=== PATIENT | female | born 1945 | race Caucasian/White ===

== ENCOUNTER 2023-08-09 23:11 | Inpatient (IN) | payer MEDICARE, OTHER, SELFPAY ==
[2023-08-09] VITALS (8 sets, daily range): BP systolic 89–113; BP diastolic 56–99; BMI 29.7; BMI 29.4
[2023-08-09 17:36] LABS: % Basophils 0.2 % (0-2); % Eosinophils 0.1 % (0-6); % Immature Granulocytes 1.9 % (0-0.5); % Lymphocytes 1.4 % (20.5-51.1); % Monocytes 2.9 % (1.7-9.3); % Neutrophils 93.5 % (42.2-75.2); Absolute Basophils 0.1 10^3/uL (0-0.2); Absolute Immature Granulocytes 0.9 10^3/uL (0-0.05); Absolute Lymphocytes 0.6 10^3/uL (1.2-3.4); Absolute Monocytes 1.3 10^3/uL (0.1-0.6); Absolute Neutrophils 41.4 10^3/uL (1.4-6.5); Hematocrit 40.2 % (37.0-47.0); Hemoglobin 13.6 g/dL (12.0-16.0); Mean Corp Hgb Conc. 33.8 g/dL (33.0-37.0); Mean Corpuscular Hgb 27.7 pg (27.0-31.0); Mean Corpuscular Volume 81.9 fL (81.0-99.0); Mean Platelet Volume 10.2 fL (7.4-10.4); Nucleated Red Blood Cells % 0 %; Platelet Count 360 10^3/uL (130-400); Red Blood Cell Count 4.91 10^6/uL (4.20-5.40); Red Cell Dist. Width 14.1 % (11.5-14.5)
[2023-08-09 17:41] LABS: White Blood Cell Count 44.3 10^3/uL (4.8-10.8)
[2023-08-09 17:56] LABS: ALT (SGPT) 20 U/L (0-35); AST (SGOT) 36 U/L (14-36); Albumin 4.1 g/dl (3.5-5.0); Alkaline Phosphatase 139 U/L (38-126); Blood Urea Nitrogen 39 mg/dl (7-17); Calcium 10.1 mg/dl (8.4-10.2); Carbon Dioxide 27 mmol/L (22-30); Chloride 95 mmol/L (98-107); Glucose 176 mg/dl (70-99); Lipase 86 U/L (23-300); Potassium 4.4 mmol/L (3.5-5.1); Sodium 132 mmol/L (135-145); Total Bilirubin 1.3 mg/dl (0.2-1.3); Total Protein 6.8 g/dl (6.3-8.2)
--- NOTE | 2023-08-09 19:16 | ED.GENMED ---
History of Present Illness
General
Chief Complaint: Abdominal Symptoms
Time Seen by Provider: 08/09/23 19:08
Travel History
Have you had any contact with someone who has COVID-19?: No
Do you have any symptoms of coronavirus? Fever > 100 degrees, chills, cough, shortness of breath, sore throat, loss of taste or smell, muscle aches, or headache?: No
History of Present Illness
History of Present Illness:
78-year-old female with history of hypertension and hyperlipidemia presents to the emergency department for evaluation of nausea, vomiting, diarrhea, and diffuse abdominal pain has been ongoing for the past 3 to 4 days. She notes that she had a
similar bout of nausea, vomiting, and diarrhea 2 weeks ago that lasted for several days but completely resolved and she was asymptomatic in the interim. Over the weekend she developed recurrent symptoms, having increased pain particular to the left
lower quadrant. No history abdominal surgeries. No fevers or chills at home.
Review of Systems
Review of Systems
Allergies reviewed?: Yes
All Other Systems: ROS reviewed and negative except as documented in HPI and ROS
Phy Exam
Physical Exam
Physical Exam:
GEN: Well appearing, NAD, WDWN
HEENT: Oral mucosa moist, no scleral icterus
Cardiac: Regular rate and rhythm, no murmurs
Lung: No respiratory distress, no tachypnea, lungs clear to auscultation
Abdomen: Soft, mildly tender to the right upper quadrant, right lower quadrant, and left lower quadrant. No rigidity or peritoneal signs
MSK: No gross deformity or injuries
Skin: Good color, no pallor or jaundice, no rashes
Neuro: AO x3, moves all extremities freely
Psych: Calm, cooperative
Course
Orders/Labs/Results
Orders:
Orders
08/09/23 17:30
Complete Blood Count/With Diff Urgent
Comprehensive Metabolic Panel Urgent
Lipase Urgent
08/09/23 19:15
CT Abd/Pel (IV only)-DH only Urgent
Comment:
Reason For Exam: N/V/D , LLQ pain
08/09/23 19:16
Lactated Ringers [Lr] 1,000 ml IV BOLUS
08/09/23 19:47
Lactic Acid Q4H
Comment: CANCEL 2nd LACTIC ACID IF 1st LACTIC ACID IS LESS THAN 2
Blood Culture Q30M
[facility] Source: Blood/Venous
Specimen Description:
Blood Culture Q30M
[facility] Source: Blood/Venous
Specimen Description:
08/09/23 19:58
Ondansetron Injectable [Zofran] 4 mg IV NOW STA
08/09/23 20:44
Urinalysis Reflex To Culture Urgent
Date Specimen was Collected: 08/09/23
Time Specimen was Collected: 20:42
Urine Microscopic Reflex Cult Urgent
Urine Culture Urgent
[facility] Source: U
Specimen Description:
Date Specimen was Collected: 08/09/23
Time Specimen was Collected: 20:42
08/09/23 21:03
Cefepime HCl [Maxipime] 1,000 mg IV NOW STA
Lactated Ringers [Lr] 1,000 ml IV BOLUS
08/09/23 21:27
Sterile Water [Sterile Water For Injection] [address] ml .[address]
08/09/23 22:19
Admit/Transfer Patient As Directed
Co-Sign Provider:
Level of Care: Inpatient admission
Assign to:: IMU- Intermediate Care
Physician / Group: gloria morrissey
Diagnosis: pyelo
Reason for Hospitalization: pyelo
Expected length of stay greater than two midnights?: Yes
ELOS- Estimated Length of Stay in days: 3
I certify the patient meets the requirements for IP care: Yes
08/09/23 22:20
Code Status As Directed
Resuscitation Status: Full Code
08/09/23 22:34
STOOL [C difficile Antigen & Toxins] Urgent
[facility] Source: Feces/Stool
Specimen Description:
Stool Culture Urgent
[facility] Source: Feces/Stool
Specimen Description:
Stool For WBC Urgent
[facility] Source: Feces/Stool
Specimen Description:
08/09/23 23:21
Lactic Acid Q4H
Comment: CANCEL 2nd LACTIC ACID IF 1st LACTIC ACID IS LESS THAN 2
Abnormal Lab Results
08/09/23 08/09/23 08/09/23
17:30 19:47 20:44
WBC 44.3 H* 10^3/uL
(4.8-10.8)
Abs Immat Gran (auto) 0.9 H 10^3/uL
(0-0.05)
Absolute Neuts (auto) 41.4 H 10^3/uL
(1.4-6.5)
Absolute Lymphs (auto) 0.6 L 10^3/uL
(1.2-3.4)
Absolute Monos (auto) 1.3 H 10^3/uL
(0.1-0.6)
Immature Gran % 1.9 H %
(0-0.5)
Neutrophils % 93.5 H %
(42.2-75.2)
Lymphocytes % 1.4 L %
(20.5-51.1)
Sodium 132 L mmol/L
(135-145)
Chloride 95 L mmol/L
(98-107)
BUN 39 H mg/dl
(7-17)
Creatinine 1.6 H mg/dL
(0.6-1.0)
Glucose 176 H mg/dl
(70-99)
Lactic Acid 2.4 H mmol/L
(0.7-2.0)
Alkaline Phosphatase 139 H U/L
(38-126)
Urine Ketones Trace A
(Negative)
Ur Occult Blood Reflex 2+ A
(Negative)
Urine Nitrite (Reflex) Positive A
(Negative)
Leukocyte Esterase Rfl 2+ A
(Negative)
Urine RBC 7-10 A /HPF
(0-2)
Urine WBC (Reflex) >100 A /HPF
(0-5)
Urine Bacteria (Reflex) Many A
(Negative)
Urine Albumin (Reflex) 1+ A
(Neg - Trace)
08/09/23 17:30
08/09/23 17:30
Vital Signs
Initial and Last Documented VS:
Initial Vital Signs
Temp Pulse Resp BP Pulse Ox
98.7 F 70 18 105/67 97
08/09/23 17:18 08/09/23 17:18 08/09/23 17:18 08/09/23 17:18 08/09/23 17:18
Last Documented Vital Signs
Temp Pulse Resp BP Pulse Ox
98.7 F 69 21 109/61 95
08/09/23 17:18 08/09/23 23:00 08/09/23 23:00 08/09/23 23:00 08/09/23 22:45
MDM/Problems Addressed
MDM/Problems Addressed:
Etiology to the patient's sepsis is likely pyelonephritis evidenced by ureteral enhancement on CT scan independently interpreted by me and lower urinary tract voiding symptoms in conjunction with UA suspicious for infection. Started broad-spectrum
IV antibiotics and IV fluid resuscitation in the emergency department. Her tachycardia is likely blunted as a result of her atenolol usage. Profound leukocytosis is probably multifactorial in the setting of volume depletion. Will admit to the
hospitalist service
*Critical Care Note
Total Time (30-74mins, 75-104mins- exclusive of procedures): 30 minutes
comment:
Critical care time: 30 minutes
Critical care time was exclusive of: Separately billable procedures, treating other patients, and teaching time
Critical care was necessary to treat or prevent imminent or life-threatening deterioration of the following conditions: Severe sepsis
Critical care time spent personally by me on the following activities:
[x] Review of old charts
[x] Obtaining history from patient or surrogate
[x] Ordering and review of the laboratory studies
[x] Ordering and review of radiographic studies
[x] Ordering and performing treatments and interventions
[x] Patient patient's response to treatment
[x] Development of treatment plan with patient or surrogate
ED Attending Note
-
Portions of this chart may have been created with voice recognition software.� Occasional wrong word or��sound alike� substitutions may have occurred due to the inherent limitations of voice recognition software.
Discharge Plan
Departure
Patient Disposition: Admit
Date of Disposition: 08/09/23
Time of Disposition: 21:47
Admit to: Med/Surg
Presentation/result/management discussed w/ accepting MD/DO: Hospitalist
Discharge Problem:
Acute pyelonephritis
Interventions
Interventions:
ED- Fall Risk Assessment Last Done: 08/09/23 19:03
XK-Xfrmek-Qfxdhizfnw Assessment Last Done: 08/09/23 19:03
[2023-08-09] MEDS: LR 1000 IV ×2 (19:47→21:39)
[2023-08-09 20:16] LABS: Lactic Acid 2.4 mmol/L (0.7-2.0)
[2023-08-09] MEDS: ZOFRAN 4 MG IV (20:33)
[2023-08-09 21:01] LABS: Urine Albumin 1+ (Neg - Trace); Urine Bilirubin Negative (Negative); Urine Character Slightly Cloudy (Clear); Urine Color Yellow; Urine Glucose Negative (Negative); Urine Ketone Trace (Negative); Urine Leukocyte 2+ (Negative); Urine Nitrite Positive (Negative); Urine Occult Blood 2+ (Negative); Urine Urobilinogen Negative (Neg - 1+)
[2023-08-09 21:06] LABS: Urine Bacteria Many (Negative); Urine Granular Cast >15 /LPF (0); Urine Squamous Cell 0-2 /LPF (Few); Urine White Cell >100 /HPF (0-5)
[2023-08-09] MEDS: MAXIPIME 1000 MG IV (21:28)
--- NOTE | 2023-08-09 21:48 | HPS.HSE ---
Addendum entered and electronically signed by Jamil Troncoso DO 08/09/23 23:02:
Patient seen and examined independently. Agree with findings and plan as set forth by JOSE Prado.
Patient is an 78y F with PMH significant for HTN, ASCVD and borderline DM who presents to ED complaining of N/V/D. Patient states that she has had intermittent issues iwth GI symptoms, N/V/D for the past year or so. Her current episode has been
present for about 2 weeks. A friend told her that she likely had the norovirus. Patient more recently developed urinary frequency, urgency and dysuria. She has been very weak and fatigued at home. Poor appetite and decreased PO intake. Patient
presented to the ED this evening for further evaluation and treatment No recent abx therapy per patient.
Ass:
UTI / Pyelonephritis
Sepsis secondary to the above
Chronic N/V/D
Marked Leukocytosis
AYSE
ASCVD
Benign Hypertension
Plan:
Admit to IMU for further evaluation and treatment.
Patient presents with leukocytosis, hypotension and UA / symptoms consistent with urinary infection.
? pyelo given associated GI symptoms (versus unrelated / chronic issue).
IV abx with cefepime and adjust as needed based on culture data.
IVF support +/- pressor support to maintain perfusion.
Hold outpatient BP med regimen.
CT A/P done in the ED was entirely unremarkable.
Follow for clinical improvement and improvement in leukocytosis, etc.
Consider Hematology evaluation if WBC does not significantly improve - ? other underlying issue.
Original Note:
Family Physician
-
Family Physician: Felisha Farah
Chief Complaint
-
n/v/d
History of Present Illness
78year old with PMH fot HTN, HLD presented to us with n/v/d for past two weeks. she was doing better in between for few days. last Wednesday she started having n/v/d associated with lower abdominal pain. patient stated urinary frequency, urgency and
burning. stated dizzy. denied BANKS, fever, chills, chest pain, sob. denied melena, hematemesis and hematuria. she last vomited this morning. her diarrhea was yesterday. no diarrhea today.
on arrival elevated wbc, lactic, positive UA. received iv cefepime in ER. admitting for further management.
Medical History
Past Medical History
Past Medical History: Reports Other
Additional Past Medical History:
pre diabetes
htn
hld
CAD
Past Surgical History: Reports Other
Additional Past Surgical History:
cardiac stents
b/l bunionectomies
pinkly left hand surgery
tubal ligation
laminectomy
right hip replacement
Social History
Tobacco: Former Smoker
Alcohol: Occasional
Drug: None
Personal:
Living: With Family
Family History
Family History: Not pertinent
Allergies / Home Medications
Allergies reflects when Allergies were last updated in [employer].
Home Medications with original date entered in [employer]
Allergy/Medication List:
Allergies
Allergy/AdvReac Type Severity Reaction Status Date / Time
No Known Allergies Allergy Unverified 08/09/23 17:18
Home Medications
Res-Q Fish Oil 2 cap PO HS 08/09/23
aspirin 81 mg tablet,delayed release 81 mg PO HS 08/09/23
atenolol 50 mg tablet 50 mg PO HS 08/09/23
coQ10 (ubiquinol) 200 mg capsule 200 mg PO HS 08/09/23
diazepam 5 mg tablet 5 mg PO HS PRN sleep 08/09/23
ezetimibe 10 mg tablet 10 mg PO HS 08/09/23
gabapentin 100 mg capsule 300 mg PO HS 08/09/23
hydrochlorothiazide 25 mg tablet 25 mg PO HS 08/09/23
magnesium oxide 800 mg PO HS 08/09/23
olmesartan 40 mg tablet 40 mg PO HS 08/09/23
rosuvastatin 40 mg tablet 40 mg PO HS 08/09/23
Review of Systems
-
Constitutional: Reports No Symptoms
EENT: Reports No Symptoms
Respiratory: Reports No Symptoms
Cardiac: Reports No Symptoms
Abdomen/GI: Reports Abdominal Pain, Nausea, Vomiting and Diarrhea
: Reports Frequency, Difficulty Voiding and Urgency
Musculoskeletal: Reports No Symptoms
Skin: Reports No Symptoms
Neurological: Reports No Symptoms
Endocrine: Reports No Symptoms
Hematologic/Lymphatic: Reports No Symptoms
Psych: Reports No Symptoms
Physical Exam
Vital Signs
Vital Signs
Temp Pulse Resp BP Pulse Ox
98.7 F 75 24 113/99 96
08/09/23 17:18 08/09/23 19:45 08/09/23 19:45 08/09/23 19:00 08/09/23 19:45
Physical Exam
General: Well Developed, Well Nourished and No Apparent Distress
HEENT: NormoCephalic, Moist mucous membranes and Atraumatic
Respiratory: Clear
Cardiac: S1/S2 and Regular Rhythm; No Murmur or Rub
GI: Soft, Non Tender, Non Distended and Normal Bowel Sounds; No Organomegaly
Rectal: Deferred by Provider
Musculoskeletal: No Clubbing, No Cyanosis and No Edema
Skin: No Rash
Neuro: AO x 3 and Nonfocal/grossly intact
Psych: Calm
Laboratory Results
-
08/09/23 17:30
08/09/23 17:30
Laboratory Results
Lactic Acid 2.4 mmol/L (0.7-2.0) H 08/09/23 19:47
Total Bilirubin 1.3 mg/dl (0.2-1.3) 08/09/23 17:30
AST 36 U/L (14-36) 08/09/23 17:30
ALT 20 U/L (0-35) 08/09/23 17:30
Alkaline Phosphatase 139 U/L (38-126) H 08/09/23 17:30
Lipase 86 U/L (23-300) 08/09/23 17:30
Data Reviewed
-
CT Scan: Report Reviewed by me
Lab Data: Labs Reviewed by me
Impression/Plan
-
#sepsis likely from acute pyelonephritis
-wbc 44.3,lactic 2.4, hypotensive
-CT abdomen pelvis negative for acute findings
-urine and blood culture sent from ER
-iv cefepime continued
-Levophed to support BP
-LR continued
-Tylenol prn for fever
-monitor wbc, trend lactic
#hyponatremia/acute kidney injury likely dehydration
-na 132, cr 1.6
-fluids continued
-monitor BMP in am
# Nausea vomiting diarrhea likely viral
-Continue to monitor symptoms
-If diarrhea persistent, consider stool studies
#CAD with cardiac stents
-asa continued
# Essential hypertension
-Blood pressure soft in ER
-Hold Atenolol, HCTZ, olmesartan
# Hyperlipidemia
-Zetia, rosuvastatin continued
# DVT prophylaxis
-Heparin subcu
# CODE STATUS
-Full code
[2023-08-09 23:43] LABS: Lactic Acid 1.6 mmol/L (0.7-2.0)
[2023-08-10] VITALS (62 sets, daily range): BP systolic 82–142; BP diastolic 36–111; BMI 29.7
--- NOTE | 2023-08-10 00:23 | TRANSFER ---
Received pt from the ER and she walked to the bathroom and urinated and then to her bed without difficulty. She is cooperative and complains of nausea and of dry mouth. Monitor shows NSR. Will monitor BP's, MAP 69 on admission. She has had no
BPM's today.
[2023-08-10] MEDS: LR 1000 IV ×3 (00:42→16:45)
[2023-08-10] MEDS: COMPAZINE 5 MG IV (00:57)
--- NOTE | 2023-08-10 01:05 | PTCARENOTE ---
Pt had the dry heaves. Was moaning due to nausea. BUSINESS CONSULT notified and order obtained for Compazine IV and given. Will monitor. BP is stable.
[2023-08-10] MEDS: TYLENOL 650 MG PO ×2 (01:40→18:45)
[2023-08-10 02:34] LABS: COVID-19 Antigen Negative (Negative)
[2023-08-10] MEDS: LEVOPHED 250 IV ×2 (02:54→16:46)
--- NOTE | 2023-08-10 03:14 | PTCARENOTE ---
Pt had the rigors and Temp 100.4 PO. Gave pt pt PO tylenol and she vomited after it was given. TT RFID ANALYST and obtained order for IV Tylenol and unable to give it due to the dose was too high over 3 hrs and was locked out of mar to give dose. Pt's temp
has improved since then and is now 99.4 PO and she is warm and moist. Pulse ox was 88% on room air and she was tachypneic so placed on O2 at 2 liters NC which improved her P2 sat to 96%. BP was < 90 systolic and Levophed started after IV team
started two new IV's. L arm IV had IV fluids not compatible with Levophed and pt bent arm frequently stopping IV fluids. IV fluids moved to R hand and Levophed started at 2mcg/min and increased to 6 mcg.min and BP improved. Pt feels better now,
and is sleeping.
[2023-08-10 06:23] LABS: Hematocrit 35.1 % (37.0-47.0); Hemoglobin 11.9 g/dL (12.0-16.0); Mean Corp Hgb Conc. 33.9 g/dL (33.0-37.0); Mean Corpuscular Hgb 27.7 pg (27.0-31.0); Mean Corpuscular Volume 81.8 fL (81.0-99.0); Mean Platelet Volume 10.4 fL (7.4-10.4); Platelet Count 256 10^3/uL (130-400); Red Blood Cell Count 4.29 10^6/uL (4.20-5.40); Red Cell Dist. Width 14.4 % (11.5-14.5); White Blood Cell Count 33.3 10^3/uL (4.8-10.8)
[2023-08-10 06:41] LABS: Blood Urea Nitrogen 34 mg/dl (7-17); Calcium 9.2 mg/dl (8.4-10.2); Carbon Dioxide 26 mmol/L (22-30); Chloride 98 mmol/L (98-107); Estimated Creatinine Clearance 28 ml/min; Glucose 147 mg/dl (70-99); Potassium 3.8 mmol/L (3.5-5.1); Sodium 133 mmol/L (135-145); eGFR 38.03
[2023-08-10] MEDS: HEPARIN 5000 UNITS SC ×2 (08:56→19:29)
[2023-08-10] MEDS: STERILE WATER FOR INJECTION 10 ML IV ×2 (09:00→22:04)
[2023-08-10] MEDS: MAXIPIME 1000 MG IV ×2 (09:00→22:04)
--- NOTE | 2023-08-10 09:59 | CM ---
Patient seen at bedside with physician. Patient states that she is independent of ADL's and IADL's normally, and lives with her . Patient home is a one story home. They have walker, cane at home that they do not use. Patient uses the [facility] on
[address] Patient PCP is Dr. MUJICA from [facility]. Patient currently has no home O2 prior to admission. Patient plan is home with no needs. Patient may benefit from home with VN pending functional status/assessments. CM will
continue to follow for discharge planning needs.
Plan; home with no need vs home with VN
--- NOTE | 2023-08-10 10:08 | W.PN.HOSP.TC ---
Today's Communication/Plan
-
wean pressors
cont cefepime
follow cultures
repeat blood until clear
Assessment / Plan
Assessment / Plan
pt is an 78 year old female
septic shock (POA) requiring vasopressors likely from acute pyelonephritis--CT abdomen pelvis negative for acute findings--blood culture with gm neg bacilli--repeat until clear--cont IVF, wean levophed to off--wean O2 to off (unclear why she was
started on it, no hypoxia documented)--cont cefepime--WBC improving
hyponatremia/acute kidney injury likely dehydration--cont IVF--slowly improving
Nausea/vomiting/diarrhea likely viral--none since admission
CAD with cardiac stents-asa continued
Essential hypertension-Blood pressure soft in ER-Hold Atenolol, HCTZ, olmesartan
Hyperlipidemia-Zetia, rosuvastatin continued
DVT prophylaxis-Heparin subcu
CODE STATUS-Full code
Anticipated Discharge: > 48 hours
Subjective/Interval History
-
Date of Service: August 10, 2023
pt still feeling wiped out
Objective Data
-
Labs:
Laboratory Results
08/10/23
05:28
WBC 33.3 H
Hgb 11.9 L
Hct 35.1 L
Plt Count 256 D
Sodium 133 L
Potassium 3.8
Chloride 98
Carbon Dioxide 26
BUN 34 H
Creatinine 1.4 H
Glucose 147 H
Calcium 9.2
Vital Signs:
max temp for 24 hours
08/10/23
00:35
Temp 100.4 F H
Vital Signs
Temp Pulse Resp BP Pulse Ox
98.4 F 56 14 115/58 99
08/10/23 07:25 08/10/23 07:15 08/10/23 07:15 08/10/23 07:15 08/10/23 07:15
I&O
08/09/23 08/10/23 08/11/23
06:59 06:59 06:59
Intake Total 970 / 970
Output Total 450 / 450
Balance 520 / 520
Review of Systems
-
All other systems: Reviewed and negative
Physical Exam
-
General: Well Developed, Well Nourished and No Apparent Distress
HEENT: Normocephalic, Atraumatic and Oxygen
Respiratory: Clear to Auscultation; Negative Wheezes, Rales or Rhonchi
Cardiac: Regular Rhythm, S1/S2 and Murmur
GI: Soft, Nontender, Nondistended and Normal Bowel Sounds
Musculoskeletal: No Clubbing, No Cyanosis and No Edema
Skin: Warm
Neuro: Awake
[2023-08-10] MEDS: ZOFRAN 4 MG IV (19:28)
[2023-08-10] MEDS: NEURONTIN 300 MG PO (22:03)
[2023-08-10] MEDS: CRESTOR 40 MG PO (22:03)
[2023-08-10] MEDS: ASPIR LOW (ENTERIC COATED) 81 MG PO (22:03)
[2023-08-10] MEDS: ZETIA 10 MG PO (22:03)
[2023-08-11] VITALS (56 sets, daily range): BP systolic 74–150; BP diastolic 30–131; PULSE 104; BMI 29.9
[2023-08-11] MEDS: LR 1000 IV ×2 (00:26→08:31)
--- NOTE | 2023-08-11 03:34 | DOWNTIME ---
There was a [employer] Client Pharmacy Tech Downtime on 08/11/2023 from 0100 to 08/11/2023 at 0322. Downtime documentation of patient's care, including medication administrations, has been reconciled in the electronic record per guidelines. Refer to the
patient's paper chart under the miscellaneous tab to see printed paper medication records and downtime forms.
[2023-08-11 04:52] LABS: Hematocrit 34.2 % (37.0-47.0); Hemoglobin 11.4 g/dL (12.0-16.0); Mean Corp Hgb Conc. 33.3 g/dL (33.0-37.0); Mean Corpuscular Hgb 27.7 pg (27.0-31.0); Mean Platelet Volume 10.8 fL (7.4-10.4); Platelet Count 203 10^3/uL (130-400); Red Blood Cell Count 4.12 10^6/uL (4.20-5.40); Red Cell Dist. Width 14.4 % (11.5-14.5); White Blood Cell Count 19.5 10^3/uL (4.8-10.8)
[2023-08-11 05:37] LABS: Blood Urea Nitrogen 27 mg/dl (7-17); Calcium 8.9 mg/dl (8.4-10.2); Carbon Dioxide 25 mmol/L (22-30); Chloride 101 mmol/L (98-107); Estimated Creatinine Clearance 33 ml/min; Glucose 110 mg/dl (70-99); Magnesium 1.4 mg/dl (1.6-2.3); Potassium 3.9 mmol/L (3.5-5.1); Sodium 134 mmol/L (135-145); eGFR 45.76
--- NOTE | 2023-08-11 06:36 | PTCARENOTE ---
Attempted to turn off levophed gtt, SBP 80s, Levophed gtt remains at 1 mcg/min, sbp now 107
[2023-08-11] MEDS: MAGNESIUM SULFATE 100 IV (08:36)
[2023-08-11] MEDS: HEPARIN 5000 UNITS SC ×2 (08:43→19:55)
[2023-08-11] MEDS: LASIX 20 MG IV (09:03)
[2023-08-11] MEDS: MAXIPIME 1000 MG IV ×2 (09:05→23:09)
[2023-08-11] MEDS: STERILE WATER FOR INJECTION 10 ML IV ×2 (09:05→23:10)
--- NOTE | 2023-08-11 10:31 | W.PN.HOSP.TC ---
Today's Communication/Plan
-
if stable off pressors, can transfer out of IMU
cont zosyn for now
PT/OT
Assessment / Plan
Assessment / Plan
pt is an 78 year old female
E. coli septic shock (POA) requiring vasopressors likely from acute pyelonephritis--pressors off today--CT abdomen pelvis negative for acute findings--blood and urine culture with E. coli--repeat until clear--stop IVF, wean levophed to off--wean O2
to off (unclear why she was started on it, no hypoxia documented)--cont cefepime--WBC improving
hyponatremia/acute kidney injury likely dehydration--stop IVF--slowly improving
Nausea/vomiting/diarrhea likely viral--none since admission
CAD with cardiac stents-asa continued
Essential hypertension-Blood pressure soft in ER-Hold Atenolol, HCTZ, olmesartan
Hyperlipidemia-Zetia, rosuvastatin continued
DVT prophylaxis-Heparin subcu
CODE STATUS-Full code
Anticipated Discharge: > 48 hours
Subjective/Interval History
-
Date of Service: August 11, 2023
pt feeling well today--taken off pressors
Objective Data
-
Labs:
Laboratory Results
08/11/23
04:32
WBC 19.5 H
Hgb 11.4 L
Hct 34.2 L
Plt Count 203 D
Sodium 134 L
Potassium 3.9
Chloride 101
Carbon Dioxide 25
BUN 27 H
Creatinine 1.2 H
Glucose 110 H
Calcium 8.9
Vital Signs:
max temp for 24 hours
08/10/23
19:15
Temp 100.3 F
Vital Signs
Temp Pulse Resp BP Pulse Ox
98.3 F 69 15 105/88 95
08/11/23 07:30 03/27/24 09:03 08/11/23 06:30 08/11/23 09:03 08/11/23 06:30
I&O
08/10/23 08/11/23 08/12/23
06:59 06:59 06:59
Intake Total 970 / 970 1594 / 1594
Output Total 450 / 450 1200 / 1200 550 / 550
Balance 520 / 520 394 / 394 -550 / -550
Review of Systems
-
All other systems: Reviewed and negative
Physical Exam
-
General: Well Developed, Well Nourished and No Apparent Distress
HEENT: Normocephalic and Atraumatic
Respiratory: Clear to Auscultation; Negative Wheezes or Rhonchi
Cardiac: Regular Rhythm and S1/S2; Negative Murmur
GI: Soft, Nontender, Nondistended and Normal Bowel Sounds
Musculoskeletal: No Clubbing, No Cyanosis and No Edema
Neuro: Awake
Psych: Calm
--- NOTE | 2023-08-11 14:25 | CM ---
Patient seen at bedside with physician. Patient very eager for discharge and stated that she would follow physician recommendations. Patient plan is home with VN if needed. CM will continue to follow for discharge planning needs.
Plan; home with no need vs home with VN
--- NOTE | 2023-08-11 15:30 | PTCARENOTE ---
Patient weaned off Levophed this morning. SBP >90 at this time. BP 97/54, MAP 68. Patient was out of bed to chair. Fair appetite. no nausea. No bowel movement since Wednesday as per patient. Patient has a temp 100.2, Dr. Perez notified. Patient has
been compliant with plan of care. Denying pain when asked. at bedside.
--- NOTE | 2023-08-11 16:36 | PTCARENOTE ---
Patient is complaining of fatigue, has an occasional productive cough with thin clear secretions and a low grade temp. Discussed with Dr. Perez. New orders pending.
[2023-08-11] MEDS: TYLENOL 650 MG PO (17:35)
[2023-08-11] MEDS: ProAmatine 10 MG PO (19:53)
[2023-08-11] MEDS: NEURONTIN 300 MG PO (23:08)
[2023-08-11] MEDS: ASPIR LOW (ENTERIC COATED) 81 MG PO (23:08)
[2023-08-11] MEDS: ZETIA 10 MG PO (23:09)
[2023-08-11] MEDS: CRESTOR 40 MG PO (23:09)
[2023-08-12] VITALS (25 sets, daily range): BP systolic 81–135; BP diastolic 46–85; PULSE 82; O2SAT 97; BMI 30.4
[2023-08-12] MEDS: ProAmatine 5 MG PO ×2 (01:13→13:52)
--- NOTE | 2023-08-12 02:04 | PTCARENOTE ---
At change of shift, 1929, pt noted to be hypotensive, notified BICYCLE TAXI DRIVER and order given for Midodrine 10mg PO and given with improvement in BP. Monitored BP and was stable until 99, So gave pt prn Midodrine with improvement in Bp to 110/51. Pt noted
to be diaphoretic and checked accu-check and glucose was 125. She was deeply asleep. Pt said that she gets night sweats at home and its usually when she sleeps. Placed on O2 at 2 l NC when her Pox dropped to 86% on room air while sleeping, she was
not apneic at the time. Since wearing O2 her O2 sat has been 100%. At 199 heart monitor noted to be Sinus bubba 40's and then dropped to 37 and BICYCLE TAXI DRIVER notified. BP WNL and she is arousable and sweaty. She has no complaints of chest pain or
pressure, no nausea. Will continue to monitor pt.
--- NOTE | 2023-08-12 03:12 | W.PN.UPDATE ---
Update Note
Progress Note Update
0200 RN reports while sleeping HR in 40s dipping to mid 30s. room air pulse ox also noted to be 88% oxygen placed and now 100%
PT admitted 2 days prior for pyelonephritis. Pt normally takes 50mg atenolol at home (none here since admit due to hypotension)
Will check EKG- none on file
Check electrolytes
[2023-08-12 03:18] LABS: Hematocrit 31.7 % (37.0-47.0); Hemoglobin 10.2 g/dL (12.0-16.0); Mean Corp Hgb Conc. 32.2 g/dL (33.0-37.0); Mean Corpuscular Hgb 27.3 pg (27.0-31.0); Mean Platelet Volume 11.4 fL (7.4-10.4); Platelet Count 211 10^3/uL (130-400); Red Blood Cell Count 3.73 10^6/uL (4.20-5.40); Red Cell Dist. Width 14.5 % (11.5-14.5); White Blood Cell Count 14.1 10^3/uL (4.8-10.8)
[2023-08-12 03:44] LABS: Blood Urea Nitrogen 25 mg/dl (7-17); Calcium 8.5 mg/dl (8.4-10.2); Carbon Dioxide 31 mmol/L (22-30); Chloride 97 mmol/L (98-107); Estimated Creatinine Clearance 30 ml/min; Glucose 125 mg/dl (70-99); Magnesium 2.3 mg/dl (1.6-2.3); Potassium 3.9 mmol/L (3.5-5.1); Sodium 134 mmol/L (135-145); eGFR 41.57
[2023-08-12 04:12] LABS: TSH Reflex To Free T4 4.21 uIU/ml (0.47-4.68)
[2023-08-12 08:12] LABS: Glucose - Point of Care 125 mg/dl (70-99)
--- NOTE | 2023-08-12 08:19 | PTCARENOTE ---
At 0400R lower arm old IV site dressing removed and noted redness at the site and pt complained of tenderness. Called IV team and placed a warm compress on site. This site had been used for a Levophed infusion prior to its removal. IV team will
assess on the day shift.
[2023-08-12] MEDS: MAXIPIME 1000 MG IV (09:12)
[2023-08-12] MEDS: HEPARIN 5000 UNITS SC ×2 (09:12→21:10)
[2023-08-12] MEDS: STERILE WATER FOR INJECTION 10 ML IV (09:13)
--- NOTE | 2023-08-12 09:14 | VATNOTE ---
vat rounds : assessed right arm infiltrate. area marked at 2 x 2 cm. Patient stating its painful. palpable cord. Warm compress applied. will continue to monitor closely.
--- NOTE | 2023-08-12 09:47 | CM ---
Patient seen at bedside with physician. Patient states that she is feeling better but c/o of cough. Patient plan is home with no needs. Patient requested list of PCP options and CM will provide. CM will continue to follow for discharge planning
needs.
Plan; home with no needs anticipated.
--- NOTE | 2023-08-12 09:48 | W.PN.HOSP.TC ---
Today's Communication/Plan
-
change cefepime to keflex
transfer to tele
d/c planning
Assessment / Plan
Assessment / Plan
pt is an 78 year old female
E. coli septic shock (POA) requiring vasopressors likely from acute pyelonephritis--resolved--CT abdomen pelvis negative for acute findings--blood and urine culture with E. coli--repeat clear----wean O2 to off (unclear why she was started on it, no
hypoxia documented)--stop cefepime, change to oral keflex--WBC improving
hyponatremia/acute kidney injury likely dehydration--stop IVF--slowly improving
Nausea/vomiting/diarrhea likely viral--none since admission
CAD with cardiac stents-asa continued
Essential hypertension-Blood pressure soft in ER-Hold Atenolol, HCTZ, olmesartan
Hyperlipidemia-Zetia, rosuvastatin continued
DVT prophylaxis-Heparin subcu
CODE STATUS-Full code
Anticipated Discharge: Within 24 hours
Subjective/Interval History
-
Date of Service: August 12, 2023
pt doing OK--has bothersome cough
Objective Data
-
Labs:
Laboratory Results
08/12/23 08/12/23
02:57 06:00
WBC 14.1 H Cancelled
Hgb 10.2 L Cancelled
Hct 31.7 L Cancelled
Plt Count 211 Cancelled
Sodium 134 L Cancelled
Potassium 3.9 Cancelled
Chloride 97 L Cancelled
Carbon Dioxide 31 H Cancelled
BUN 25 H Cancelled
Creatinine 1.3 H Cancelled
Glucose 125 H Cancelled
Calcium 8.5 Cancelled
Vital Signs:
max temp for 24 hours
08/11/23
15:04
Temp 100.2 F
Vital Signs
Temp Pulse Resp BP Pulse Ox
98.1 F 56 17 119/61 100
08/12/23 07:32 08/12/23 08:15 08/12/23 08:15 08/12/23 08:00 08/12/23 08:15
I&O
08/11/23 08/12/23 08/13/23
06:59 06:59 06:59
Intake Total 1594 / 1594 890 / 890
Output Total 1200 / 1200 1400 / 1400
Balance 394 / 394 -510 / -510
Review of Systems
-
All other systems: Reviewed and negative
Respiratory: Reports Cough
Physical Exam
-
General: Well Developed, Well Nourished and No Apparent Distress
HEENT: Normocephalic and Atraumatic
Respiratory: Clear to Auscultation; Negative Wheezes or Rhonchi
Cardiac: Regular Rhythm and S1/S2; Negative Murmur
GI: Soft, Nontender, Nondistended and Normal Bowel Sounds
Musculoskeletal: No Clubbing, No Cyanosis and No Edema
Neuro: Awake and Alert
Psych: Calm
[2023-08-12] MEDS: KEFLEX 500 MG PO ×3 (13:03→21:09)
--- NOTE | 2023-08-12 15:13 | PTCARENOTE ---
Addendum entered by Luis Bonner RN 08/12/23 16:27:
Right forearm redness with changes to initial assessment. Previously circled area from IV team now bruised and redness has grown and shifted upward with a mottled appearance. Patient has been doing warm compresses on and off all shift. Patient
states whole area feels like a bruise. Notified IV team, notified MD, notified receiving nurse on 2N. Continuing to monitor.
Original Note:
Patient AAOx4, pleasant. NSR on monitor. Weaned to RA with sats >95%. BPs soft, PRN midodrine given with improvement. MD Perez aware. Still with poor appetite, encouraging patient to try eating more. at bedside. To be transferred to 2140
soon. Discussed episode of sweats and bradycardia that occurred overnight with patient who states that she occasionally has sweats like that in stressful situations and at night at home. No episodes today. Still with slight dry cough. Bed alarm on
for safety. Continuing to closely monitor patient.
[2023-08-12] MEDS: ROBITUSSIN DM 5 ML PO ×2 (16:48→21:10)
--- NOTE | 2023-08-12 17:47 | VATNOTE ---
late entry; called by PCN re. right arm cord from 2 days ago infiltrate. Encouraged PCN to continue with heat and inform MD in am to assess.
[2023-08-12] MEDS: NEURONTIN 300 MG PO (21:08)
[2023-08-12] MEDS: ZETIA 10 MG PO (21:08)
[2023-08-12] MEDS: MAG-TAB SR 168 MG PO (21:09)
[2023-08-12] MEDS: ASPIR LOW (ENTERIC COATED) 81 MG PO (21:09)
[2023-08-12] MEDS: CRESTOR 40 MG PO (21:09)
[2023-08-13] VITALS (7 sets, daily range): BP systolic 101–133; BP diastolic 56–72; PULSE 78; O2SAT 94
[2023-08-13 04:24] LABS: Hematocrit 31.4 % (37.0-47.0); Hemoglobin 10.3 g/dL (12.0-16.0); Mean Corp Hgb Conc. 32.8 g/dL (33.0-37.0); Mean Corpuscular Hgb 28.1 pg (27.0-31.0); Mean Corpuscular Volume 85.6 fL (81.0-99.0); Mean Platelet Volume 11.2 fL (7.4-10.4); Platelet Count 209 10^3/uL (130-400); Red Blood Cell Count 3.67 10^6/uL (4.20-5.40); Red Cell Dist. Width 14.5 % (11.5-14.5); White Blood Cell Count 8.1 10^3/uL (4.8-10.8)
[2023-08-13 04:59] LABS: Blood Urea Nitrogen 21 mg/dl (7-17); Calcium 8.5 mg/dl (8.4-10.2); Carbon Dioxide 30 mmol/L (22-30); Chloride 99 mmol/L (98-107); Estimated Creatinine Clearance 33 ml/min; Glucose 104 mg/dl (70-99); Magnesium 2.1 mg/dl (1.6-2.3); Potassium 3.7 mmol/L (3.5-5.1); Sodium 136 mmol/L (135-145); eGFR 45.76
--- NOTE | 2023-08-13 08:52 | VATNOTE ---
Vat rounds right arm cord continues. no c/o pain at present time. Warm compress applied for comfort. Will monitor closely.
[2023-08-13] MEDS: KEFLEX 500 MG PO ×4 (09:39→21:20)
[2023-08-13] MEDS: HEPARIN 5000 UNITS SC ×2 (09:39→20:30)
[2023-08-13] MEDS: ROBITUSSIN DM 5 ML PO ×2 (09:44→17:34)
--- NOTE | 2023-08-13 15:45 | W.PN.HOSP.TC ---
Today's Communication/Plan
-
check CXR
check US
d/c planning
Assessment / Plan
Assessment / Plan
pt is an 78 year old female
E. coli septic shock (POA) requiring vasopressors likely from acute pyelonephritis--resolved--CT abdomen pelvis negative for acute findings--blood and urine culture with E. coli--repeat clear----wean O2 to off (unclear why she was started on it, no
hypoxia documented)--stop cefepime, change to oral keflex--WBC improving
cough -- check CXR
IV infiltrates right and left arms--think superficial phlebitis but check US for completeness
hyponatremia/acute kidney injury likely dehydration--stop IVF--slowly improving
Nausea/vomiting/diarrhea likely viral--none since admission
CAD with cardiac stents-asa continued
Essential hypertension-Blood pressure soft in ER-Hold Atenolol, HCTZ, olmesartan
Hyperlipidemia-Zetia, rosuvastatin continued
DVT prophylaxis-Heparin subcu
CODE STATUS-Full code
Anticipated Discharge: Within 24 hours
Subjective/Interval History
-
Date of Service: August 13, 2023
pt c/o cough
Objective Data
-
Labs:
Laboratory Results
08/13/23
04:10
WBC 8.1
Hgb 10.3 L
Hct 31.4 L
Plt Count 209
Sodium 136
Potassium 3.7
Chloride 99
Carbon Dioxide 30
BUN 21 H
Creatinine 1.2 H
Glucose 104 H
Calcium 8.5
Vital Signs:
max temp for 24 hours
08/13/23
07:19
Temp 98.7 F
Vital Signs
Temp Pulse Resp BP Pulse Ox
98.1 F 86 16 110/68 94
08/13/23 11:20 03/29/24 11:20 08/13/23 11:20 08/13/23 11:20 08/13/23 11:20
I&O
08/12/23 08/13/23 08/14/23
06:59 06:59 06:59
Intake Total 890 / 890 960 / 960
Output Total 1400 / 1400
Balance -510 / -510 960 / 960
Review of Systems
-
All other systems: Reviewed and negative
Respiratory: Reports Cough
Physical Exam
-
General: Well Developed, Well Nourished and No Apparent Distress
HEENT: Normocephalic and Atraumatic
Respiratory: Clear to Auscultation; Negative Wheezes, Rales, Rhonchi or Crackles
Cardiac: Regular Rhythm and S1/S2; Negative Murmur
GI: Soft, Nontender, Nondistended and Normal Bowel Sounds
Musculoskeletal: No Clubbing, No Cyanosis and No Edema
Skin: Warm
Neuro: Awake
--- NOTE | 2023-08-13 18:08 | PTCARENOTE ---
Patient had episodes of bradycardia. Denies chest pain or sob. denies dizziness. no s/s of distress noted. made aware.
[2023-08-13] MEDS: NEURONTIN 300 MG PO (21:20)
[2023-08-13] MEDS: ASPIR LOW (ENTERIC COATED) 81 MG PO (21:20)
[2023-08-13] MEDS: ZETIA 10 MG PO (21:20)
[2023-08-13] MEDS: MAG-TAB SR 168 MG PO (21:20)
[2023-08-13] MEDS: CRESTOR 40 MG PO (21:20)
[2023-08-14 03:35] VITALS: BP 122/63
[2023-08-14 07:30] VITALS: BP 132/61
[2023-08-14] MEDS: KEFLEX 500 MG PO ×2 (08:42→14:06)
[2023-08-14] MEDS: HEPARIN 5000 UNITS SC (08:42)
[2023-08-14 09:08] LABS: Hematocrit 32.5 % (37.0-47.0); Hemoglobin 10.6 g/dL (12.0-16.0); Mean Corp Hgb Conc. 32.6 g/dL (33.0-37.0); Mean Corpuscular Hgb 27.5 pg (27.0-31.0); Mean Corpuscular Volume 84.2 fL (81.0-99.0); Mean Platelet Volume 11.4 fL (7.4-10.4); Platelet Count 239 10^3/uL (130-400); Red Blood Cell Count 3.86 10^6/uL (4.20-5.40); Red Cell Dist. Width 14.3 % (11.5-14.5); White Blood Cell Count 5.9 10^3/uL (4.8-10.8)
[2023-08-14 09:29] LABS: Blood Urea Nitrogen 14 mg/dl (7-17); Calcium 9.2 mg/dl (8.4-10.2); Carbon Dioxide 29 mmol/L (22-30); Chloride 101 mmol/L (98-107); Estimated Creatinine Clearance 36 ml/min; Glucose 107 mg/dl (70-99); Magnesium 1.9 mg/dl (1.6-2.3); Sodium 135 mmol/L (135-145)
--- NOTE | 2023-08-14 10:22 | W.PN.HOSP.TC ---
Today's Communication/Plan
-
await cards input
plan for d/c today
Assessment / Plan
Assessment / Plan
pt is an 78 year old female
E. coli septic shock (POA) requiring vasopressors likely from acute pyelonephritis--resolved--CT abdomen pelvis negative for acute findings--blood and urine culture with E. coli--repeat clear----wean O2 to off (unclear why she was started on it, no
hypoxia documented)--stop cefepime, change to oral keflex--WBC improving
cough -- CXR WNL
sinus bradycardia--asymptomatic--atenolol has already been discontinued--will ask cards for opinion prior to d/c
IV infiltrates right and left arms--think superficial phlebitis--US neg for DVT
hyponatremia/acute kidney injury likely dehydration--stop IVF--slowly improving
Nausea/vomiting/diarrhea likely viral--none since admission
CAD with cardiac stents-asa continued
Essential hypertension-Blood pressure soft in ER--Holding Atenolol, HCTZ, olmesartan
Hyperlipidemia-Zetia, rosuvastatin continued
DVT prophylaxis-Heparin subcu
CODE STATUS-Full code
Anticipated Discharge: Today
Subjective/Interval History
-
Date of Service: August 14, 2023
pt ready for d/c
Objective Data
-
Labs:
Laboratory Results
08/14/23
08:09
WBC 5.9
Hgb 10.6 L
Hct 32.5 L
Plt Count 239
Sodium 135
Potassium 4.0
Chloride 101
Carbon Dioxide 29
BUN 14
Creatinine 1.1 H
Glucose 107 H
Calcium 9.2
Vital Signs:
max temp for 24 hours
08/13/23
19:42
Temp 98.4 F
Vital Signs
Temp Pulse Resp BP Pulse Ox
98.0 F 54 20 132/61 95
08/14/23 07:30 08/14/23 07:30 08/14/23 07:30 08/14/23 07:30 08/14/23 07:30
I&O
08/13/23 08/14/23 08/15/23
06:59 06:59 06:59
Intake Total 960 / 960 840 / 840
Balance 960 / 960 840 / 840
Review of Systems
-
All other systems: Reviewed and negative
Physical Exam
-
General: Well Developed, Well Nourished and No Apparent Distress
HEENT: Normocephalic and Atraumatic
Respiratory: Clear to Auscultation; Negative Wheezes or Rhonchi
Cardiac: Regular Rhythm and S1/S2; Negative Murmur
GI: Soft, Nontender, Nondistended and Normal Bowel Sounds
Musculoskeletal: No Clubbing, No Cyanosis and No Edema
Neuro: Awake and Alert
--- NOTE | 2023-08-14 12:35 | CM ---
CM reviewed pt with Dr Perez- oliva today pending cardio
Bedside meeting with pt and spouse
VN recommended- provider choice discussed
Referral sent to [facility] via [facility]
VN order requested
IMM verbally reviewed- copy provided
PCP list also provided per their request
Discharge Disposition- home with [facility] office
Fax- [phone]
--- NOTE | 2023-08-14 14:04 | W.DCSUMMARY ---
Discharge Summary
Discharge Data
Date of Admission: 08/09/23
Date of Discharge: 08/14/23
-
Pending Results: No
Hospital Course
Primary care physician : Felisha Farah
Principal Discharge diagnosis : Escherichia coli septic shock requiring vasopressors from acute pyelonephritis, sinus bradycardia, IV infiltrates the right and left arms, hyponatremia/acute kidney injury
Chronic Discharge diagnosis : Coronary artery disease status post cardiac stents, essential hypertension, hyperlipidemia
Hospital Course : Patient was an 78-year-old female who presented with nausea, vomiting, diarrhea for the past 2 weeks prior to admission. On the Wednesday prior to admission she had lower abdominal pain as well. She started with urinary frequency,
urgency, and burning. She also felt dizzy. Workup in the emergency department found her to be septic and the patient was admitted.
Problem #1: Escherichia coli septic shock requiring vasopressors and acute pyelonephritis. Patient was admitted to the intermediate care unit and required blood pressure support with Levophed. CAT scan of the abdomen and pelvis was negative for
acute findings. Blood and urine cultures were positive for Escherichia coli. Repeat cultures were negative. She was placed on cefepime and was transitioned to oral Keflex at discharge to complete a 14-day total course of therapy. White blood
cell count on admission was 44,000 which has improved to 5900 on the day of discharge.
Problem #2: Sinus bradycardia. This was mostly nocturnal. Despite reassurance from myself, cardiology was consulted for an opinion. Patient has been taken off of her atenolol. 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
medication.
Problem #3: IV infiltrated to the right and left arms. These were treated as superficial thrombophlebitis with warm compresses. Ultrasound was done on both arms which were negative for DVTs.
Problem #4: Hyponatremia/acute kidney injury. This was from infection and dehydration. These resolved with IV fluid administration.
Problem or 5: All other medical issues. These include Coronary artery disease status post cardiac stents, essential hypertension, hyperlipidemia. These medical issues were stable during her hospitalization. Medications were continued as able.
Patient is stable for discharge home at this time. If there are any questions regarding this dictation or her hospital stay, please not hesitate to call. Our office number is [phone].
Important imaging findings :
CT SCAN ABDOMEN/PELVIS IMPRESSION:
1). There is no evidence of acute pathology in the abdomen or pelvis
Imaging for bowel pathology is limited by the lack of enteric contrast.
If there is clinical concern for bowel pathology, the study could be repeated with enteric contrast
2).There is a 12 mm calcification/ossification at the right adnexa which may be dermoid.
3).There is right hip replacement.
There is degenerative osteoarthritis of left hip
There is degenerative disc disease in the lumbar spine
Discharge Plan
-
Patient Disposition: Home (Routine Discharge)
Discharge Diagnosis/Procedures: Escherichia coli septic shock from acute pyelonephritis, sinus bradycardia asymptomatic, hyponatremia/acute kidney injury resolved, coronary artery disease status post stents, essential hypertension, hyperlipidemia
Condition: Good
Diet: As tolerated and Regular
Activity: As tolerated
Driving Restrictions: As prior to admission
Referrals:
Ghulam Serrano MD [Non-Admitting Privileges] - (as scheduled)
Felisha Farah MD [Family Provider] - in less than 1 week
Prescriptions:
New
acetaminophen 325 mg Tablet
650 mg PO Q4HPRN PRN (Reason: mild pain/BANKS/temp> 100.4F) Qty: 0 0RF
cephalexin 500 mg Capsule
500 mg PO QID Qty: 32 0RF
Continued
aspirin 81 mg Tablet,Delayed Release (Dr/Ec)
81 mg PO HS
gabapentin 100 mg Capsule
300 mg PO HS
diazepam 5 mg Tablet
5 mg PO HS PRN (Reason: sleep)
Patient Comments:
08/09/2023, [facility] records from 05/20/2021.
ezetimibe 10 mg Tablet
10 mg PO HS
rosuvastatin 40 mg Tablet
40 mg PO HS
coQ10 (ubiquinol) 200 mg Capsule
200 mg PO HS
magnesium oxide 400 mg magnesium Tablet
800 mg PO HS
Res-Q Fish Oil
2 cap PO HS
Patient Comments:
08/09/2023, 1200 mg per capsule.
Held
hydrochlorothiazide 25 mg Tablet
25 mg PO HS
Hold Instructions: Do not take and discuss restarting with your family physician
olmesartan 40 mg Tablet
40 mg PO HS
Hold Instructions: Do not take and discuss restarting with your family physician
atenolol 50 mg Tablet
50 mg PO HS
Hold Instructions: Do not take and discuss restarting with your family physician
Discharge Orders:
Discharge Patient (As Directed); Ordered 08/14/23
Ordered By: Sophia Perez
Discharge Date and Time
Print Language: AZERBAIJANI
--- NOTE | 2023-08-14 14:42 | CON.CAR ---
Consultation
Consultation Request
Date/Time Consultation Requested: 08/14/2023 0712 hrs.
Date/Time Consultation Performed: 08/14/2023 at approximately 1330 hrs.
Requesting Provider: Sophia Perez MD
Performing Provider: Rober Jorgensen MD
Reason for Consultation: Nocturnal sinus bradycardia
Medical History
-
Chief Complaint: Admitted with urologic sepsis
History of Present Illness:
Thank you for requesting cardiovascular consultation for asymptomatic sinus bradycardia.
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 She does not have established CAD as best as she knows. She has never had syncope or presyncope. She was admitted with your urologic sepsis and pansensitive E. coli responded
to 2 treatment. Nocturnal sinus bradycardia was noted and cardiac consultation was requested.
She has never had syncope or presyncope. She has no palpitations.
Past Medical History
Past Medical History: HTN, Hypercholesterolemia and Other (DJD. The patient could not confirm a diagnosis of CAD when I interviewed her)
Past Surgical History: Other (Orthopedic surgery)
Allergies / Home Medications
Allergy/AdvReac Type Severity Reaction Status Date / Time
No Known Allergies Allergy Unverified 08/09/23 17:18
�Medication �Instructions �Recorded �Confirmed �Type
Res-Q Fish Oil 2 cap PO HS Supplement 08/09/23 08/09/23 History
aspirin 81 mg tablet,delayed 81 mg PO HS Blood Clot 08/09/23 08/09/23 History
release Prevention/Tx
atenolol 50 mg tablet 50 mg PO HS Blood Pressure 08/09/23 08/09/23 History
coQ10 (ubiquinol) 200 mg capsule 200 mg PO HS Supplement 08/09/23 08/09/23 History
diazepam 5 mg tablet 5 mg PO HS PRN sleep 08/09/23 08/09/23 History
ezetimibe 10 mg tablet 10 mg PO HS High Cholesterol 08/09/23 08/09/23 History
gabapentin 100 mg capsule 300 mg PO HS Pain 08/09/23 08/09/23 History
hydrochlorothiazide 25 mg tablet 25 mg PO HS Blood Pressure 08/09/23 08/09/23 History
magnesium oxide 800 mg PO HS Supplement 08/09/23 08/09/23 History
olmesartan 40 mg tablet 40 mg PO HS Blood Pressure 08/09/23 08/09/23 History
rosuvastatin 40 mg tablet 40 mg PO HS High Cholesterol 08/09/23 08/09/23 History
acetaminophen 325 mg tablet 650 mg (2 x 325 mg) PO Q4HPRN PRN 08/14/23 Rx
mild pain/BANKS/temp> 100.4F #0 tabs
cephalexin 500 mg capsule 500 mg PO QID #32 caps 08/14/23 Rx
Review of Systems
-
Cardiac: No Symptoms (Negative for chest pain, palpitations, or syncope negative for PND or orthopnea)
Physical Exam
Vital Signs
Temp Pulse Resp BP Pulse Ox
98.0 F 54 20 132/61 95
08/14/23 07:30 08/14/23 07:30 08/14/23 07:30 08/14/23 07:30 08/14/23 07:30
Lab Results
08/14/23 08:09
08/14/23 08:09
Physical Exam
General: Well Developed and Well Nourished
HEENT: Normocephalic and Anicteric
Respiratory: Clear
Cardiac: S1/S2 and Regular Rhythm
GI: Soft and Non Tender
Skin: Warm and Dry
Neuro: AO x 3
Psych: Calm
Impression / Plan
-
Asymptomatic sinus bradycardia: Not concerning. We could continue her usual atenolol but as we are using less beta-ofelia for hypertension it seems reasonable to discontinue it. Asymptomatic nocturnal sinus bradycardia does not require treatment.
I think she is at low risk for developing bradycardia during waking hours.
Hypertension, she will continue to follow-up with Dr. Serrano who manages her hypertension.
Mixed hyperlipidemia she should continue on her statin.
Thank you for having us see this patient in consultation. Will see her again as needed.
Data Reviewed
-
EKG: Tracing Personally Visualized and interpreted (EKG 08/12/2023 at 0250 hrs. sinus bradycardia 42 bpm. Small R wave in V6 likely related to lead placement. Poor R wave progression may be related to lead placement) and Other (Telemetry reviewed
some sinus bradycardia in the very design lead hours.)
Radiology: Image Personally Visualized and interpreted (Chest x-ray image 08/13/2023 no heart failure. Elevated right hemidiaphragm. )
CT Scan: Report Reviewed by me
Labs: Labs Reviewed by me (Hemoglobin 10.6. Initial white count 33.35.9 at discharge. Creatinine 1.1 at discharge. Glucose 107 at discharge. Potassium 4.0. TSH 4.2.) and Other (Blood and urine cultures E. coli pansensitive reviewed by me)
Total Time Spent with Patient (in minutes): 56 minutes spent, reviewing telemetry/chart/interview/prepare document
== END 2023-08-14 15:04 | disposition home health service (06) | DRG 871 ==
LOC: 2 NORTH 23:11
PROVIDERS: Emergency Medicine; Nurse Practitioner Family; Physician Assistant; Registered Nurse; ADMITTING PHYSICIAN Hospitalist; ATTENDING PHYSICIAN Internal Medicine; CONSULT PHYSICIAN Internal Medicine Cardiovascular Disease; EMERGENCY PHYSICIAN Emergency Medicine; FAMILY PHYSICIAN Family Medicine; REFERRING PHYSICIAN Internal Medicine
DX: A41.51 Sepsis due to Escherichia coli [E. coli] (principal); R65.21 Severe sepsis with septic shock; N10 Acute pyelonephritis; E87.1 Hypo-osmolality and hyponatremia; N17.9 Acute kidney failure, unspecified; N39.0 Urinary tract infection, site not specified; I25.10 Atherosclerotic heart disease of native coronary artery without angina pectoris; I10 Essential (primary) hypertension; Z87.891 Personal history of nicotine dependence; E78.00 Pure hypercholesterolemia, unspecified; R00.1 Bradycardia, unspecified; Z11.52 Encounter for screening for COVID-19
CPT/HCPCS: 71046; 74177; 80048; 80053; 81003; 81015; 82962; 83605; 83690; 83735; 84443; 85025; 85027; 87040; 87077; 87086; 87149; 87186; 87205; 87811; 93005; 93970; 96361; 96374; 96375; 97116; 97163; 97167; 97530; 99291; Q9967